=== PATIENT | female | born 1975 | race American Indian/Alaskan Native ===

== ENCOUNTER 2019-10-07 19:43 | Emergency (ER) | payer MEDICAID ==
[2019-10-07 19:53] VITALS: BP 127/83
[2019-10-07] MEDS ORDERED: LIDOCAINE-MPF (1%) 10 MG/1 ML VIAL 5 ML INFILTRATI ONE (20:06)
[2019-10-07] MEDS ORDERED: IBUPROFEN 600 MG TAB PO ONE (20:06)
[2019-10-07] MEDS ORDERED: cephALEXin 500 MG CAP PO ONE (20:06)
[2019-10-07] MEDS ORDERED: ACETAMINOPHEN 500 MG TAB PO ONE (20:07)
--- NOTE | 2019-10-07 21:23 | Emergency Department Report ---
ED Extremity Problem HPI - General Chief complaint: Extremity Injury, Upper Stated complaint: RIGHT THUMB PAIN Source: patient Mode of arrival: Ambulatory Limitations: No Limitations - History of Present Illness Initial comments: Patient is a 43-year-old -[place] female with no past medical history who presents to the ED with complaint of acute onset persistent severe painful swelling erythematous maculopapular rash on distal dorsal right thumb for 2 days after aggressively cutting her nails about 4 days ago. Patient states that the pain has worsened especially in the last 24 hours such that she was unable to sleep because of severe pain. Patient denies fever, chills, nausea, vomiting, traumatic injury, numbness and tingling or weakness of right hand or right hand. MD Complaint: extremity pain (right pain and swelling), joint swelling (right thumb), other (erythematous painful swollen fluctuant rash on distal right thumb) -: Sudden, days(s) (2) Location: right, upper extremity (thumb) History of Same: No -: Yes myalgia, No arthralgia, No fever, No associated dyspnea, No associated chest pain Radiation: none Severity scale (0 -10): 9 Quality: aching, sharp Consistency: constant Improves with: nothing Worsens with: nothing Associated Symptoms: denies other symptoms, rash (Erythematous maculopapular painful swollen rash on distal right arm). denies: chest pain, shortness of breath, fever, myalgias, arthralgias - Related Data Previous Rx's Medication Instructions Recorded Last Taken Type Acetaminophen/Codeine [Tylenol 1 tab PO Q6H PRN #12 tab 10/07/19 Unknown Rx /Codeine # 3 tab] Ibuprofen [Motrin] 600 mg PO Q8H PRN #24 tablet 10/07/19 Unknown Rx cephALEXin [Keflex] 500 mg PO Q6HR #40 capsule 10/07/19 Unknown Rx Allergies Allergy/AdvReac Type Severity Reaction Status Date / Time No Known Allergies Allergy Unverified 10/07/19 19:53 ED Review of Systems ROS: Stated complaint: RIGHT THUMB PAIN Other details as noted in HPI Constitutional: denies: chills, fever Eyes: denies: eye pain, eye discharge, vision change ENT: denies: ear pain, throat pain Respiratory: denies: cough, shortness of breath, wheezing Cardiovascular: denies: chest pain, palpitations Endocrine: no symptoms reported Gastrointestinal: denies: abdominal pain, nausea, diarrhea Genitourinary: denies: urgency, dysuria, discharge Musculoskeletal: joint swelling (Painful swollen erythematous rash on distal right thumb), arthralgia (Painful swelling erythematous rash on distal right thumb). denies: back pain Skin: rash (Erythematous maculopapular rash with pain and swelling on distal right thumb). denies: lesions Neurological: denies: headache, weakness, paresthesias Psychiatric: denies: anxiety, depression Hematological/Lymphatic: denies: easy bleeding, easy bruising ED Past Medical Hx - Past Medical History Previous Medical History?: No - Surgical History Past Surgical History?: No - Social History Smoking Status: Never Smoker Substance Use Type: None - Medications Home Medications: Home Medications Medication Instructions Recorded Confirmed Last Taken Type Acetaminophen/Codeine [Tylenol 1 tab PO Q6H PRN #12 tab 10/07/19 Unknown Rx /Codeine # 3 tab] Ibuprofen [Motrin] 600 mg PO Q8H PRN #24 tablet 10/07/19 Unknown Rx cephALEXin [Keflex] 500 mg PO Q6HR #40 capsule 10/07/19 Unknown Rx ED Physical Exam - General Limitations: No Limitations General appearance: alert, in no apparent distress - Head Head exam: Present: atraumatic, normocephalic, normal inspection - Eye Eye exam: Present: normal appearance, PERRL, EOMI Pupils: Present: normal accommodation - ENT ENT exam: Present: normal exam, normal orophraynx, mucous membranes moist, TM's normal bilaterally, normal external ear exam - Neck Neck exam: Present: normal inspection, full ROM. Absent: tenderness, lymphadenopathy - Respiratory Respiratory exam: Present: normal lung sounds bilaterally. Absent: respiratory distress, wheezes, rales, rhonchi, chest wall tenderness, accessory muscle use, decreased breath sounds, prolonged expiratory - Cardiovascular Cardiovascular Exam: Present: regular rate, normal rhythm, normal heart sounds. Absent: systolic murmur, diastolic murmur, rubs, gallop - GI/Abdominal GI/Abdominal exam: Present: soft, normal bowel sounds. Absent: tenderness, guarding, rebound, hyperactive bowel sounds, hypoactive bowel sounds - Extremities Exam Extremities exam: Present: normal inspection, full ROM, tenderness (Palpable severe tenderness on distal right thumb with swelling due to erythematous maculopapular fluctuant rash), normal capillary refill, joint swelling (Swollen, severely tender distal right thumb due to erythematous fluctuant maculopapular rash) - Back Exam Back exam: Present: normal inspection, full ROM. Absent: tenderness, CVA tenderness (R), muscle spasm, paraspinal tenderness - Neurological Exam Neurological exam: Present: alert, oriented X3, CN II-XII intact, normal gait, reflexes normal - Psychiatric Psychiatric exam: Present: normal affect, normal mood - Skin Skin exam: Present: warm, dry, intact, rash (Erythematous maculopapular fluctuant rash with tenderness on distal right thumb), erythema ED Course Vital Signs 10/07/19 19:47 Temperature 99.5 F Pulse Rate 73 Respiratory 18 Rate Blood Pressure 127/83 O2 Sat by Pulse 100 Oximetry - I & D Right Distal Finger Type of Procedure: Simple Site: Distal dorsal right thumb Blade Size: 11 I & D Procedure: betadine prep, sterile dressing applied, gauze wick placed Progress: Patient tolerated the procedure well. Patient was discharged home on antibiotics and pain medications and advised to follow-up with her primary care physician in 7 to 10 days for reevaluation or return to the ED immediately if symptoms get worse. ED Medical Decision Making - Medical Decision Making This is a 43-year-old -[place] female with no past medical history who presents to the ED with complaint of acute onset persistent severe painful swelling erythematous maculopapular rash on distal dorsal right thumb for 2 days after aggressively cutting her nails about 4 days ago. Patient states that the pain has worsened especially in the last 24 hours such that she was unable to sleep because of severe pain. In the ED, patient is alert and oriented x3 and is not in distress but appears to be in significant pain and vital signs are stable. Patient was treated for pain and also given initial oral antibiotics Keflex in the ED. The right thumb swollen rash was cleaned thoroughly and incised and drained per protocol. Patient tolerated the procedure well and the wound was cleaned, packed with sterile gauze and dressed appropriately. Patient was discharged home on oral antibiotics and pain medication and advised to follow-up with her primary care physician in 5 to 7 days for reevaluation or return to the ED immediately if symptoms get worse. - Differential Diagnosis cellulitis; paronychia; cutaneous abscess; Folliculitis Critical care attestation.: If time is entered above; I have spent that time in minutes in the direct care of this critically ill patient, excluding procedure time. ED Disposition Clinical Impression: Cellulitis of right thumb, Acute paronychia of right thumb Disposition: TO HOME OR SELFCARE Is pt being admited?: No Does the pt Need Aspirin: No Condition: Stable Instructions: Paronychia (ED), Cellulitis (ED) Additional Instructions: Take medication with food, drink plenty fluids and follow-up with your primary care physician in 5 to 7 days for reevaluation. Return to the ED immediately if symptoms get worse. Prescriptions: cephALEXin [Keflex] 500 mg PO Q6HR #40 capsule Ibuprofen [Motrin] 600 mg PO Q8H PRN #24 tablet PRN Reason: Pain Acetaminophen/Codeine [Tylenol /Codeine # 3 tab] 1 tab PO Q6H PRN #12 tab PRN Reason: Pain , Severe (7-10) Referrals: [facility] [Provider Group] - 7-10 days Time of Disposition: 21:23 Print Language: UPPER SORBIAN
== END 2019-10-07 21:53 | disposition home or self-care (01) ==
LOC: ED 19:43
DX: L03.011 Cellulitis of right finger (principal); Z79.899 Other long term (current) drug therapy
CPT/HCPCS: 99282

== ENCOUNTER 2020-12-20 23:26 | Emergency (ER) | payer MEDICAID ==
--- NOTE | 2020-12-21 01:35 | Event Note ---
ED Screening Note Date of service: 12/21/20 Time: 01:34 ED Screening Note: Patient is a 45-year-old -Welsh female with no past medical history presents to the ED with complaint of acute onset persistent diffuse abdominal pain with nausea and diarrhea for the last 4 months, worse in the last 3 days. Patient states that she has been taking [id number] antidiarrheal medications with no relief. Patient states that about 6 hours ago she noticed that there was some blood mixed with diarrhea and decided come to the ED for evaluation. Patient denies vomiting, fever, chills, dizziness, syncope, dysuria, urinary frequency and urgency, vaginal bleeding, fever, chills, cough, chest pa in or shortness of breath. This initial assessment/diagnostic orders/clinical plan/treatment(s) is/are subject to change based on patients health status, clinical progression and re- assessment by fellow clinical providers in the ED. Further treatment and workup at subsequent clinical providers discretion. Patient/guardian urged not to elope from the ED as their condition may be serious if not clinically assessed and managed. Initial orders include: CBC, CMP, lipase, UA, serum hCG
[2020-12-21 02:05] LABS: Bacteria,Urine 1+ /HPF (Negative); Bilirubin,Urine NEG (Negative); Blood,Urine SM (Negative); Calcium Oxalate Crystals,Urine 3+; Color,Urine Yellow (Yellow); Mucus,Urine 3+ /HPF
[2020-12-21 02:26] LABS: Basophils % (Auto) 0.3 % (0.0-1.8); Eosinophils # (Auto) 0.2 K/mm3 (0.0-0.4); Eosinophils % (Auto) 1.7 % (0.0-4.3); Hematocrit 37.8 % (30.3-42.9); Hemoglobin 12.6 gm/dl (10.1-14.3); Lymphocytes # (Auto) 2.5 K/mm3 (1.2-5.4); Lymphocytes % (Auto) 22.9 % (13.4-35.0); Mean Corpuscular HGB Conc 33 % (30-34); Mean Corpuscular Volume 94 fl (79-97); Monocytes % (Auto) 9.2 % (0.0-7.3); Platelet Count 203 K/mm3 (140-440); Red Blood Count 4.03 M/mm3 (3.65-5.03); Red Cell Distribution Width 13.8 % (13.2-15.2)
[2020-12-21 02:34] LABS: BUN/Creatinine Ratio 14; Blood Urea Nitrogen 11 mg/dL (7-17)
[2020-12-21 02:38] LABS: Alanine Aminotransferase 17 units/L (7-56); Calcium 8.9 mg/dL (8.4-10.2); Hemolysis Index 0
[2020-12-21] MEDS ORDERED: ONDANSETRON 4 MG ODT TAB PO ONE (05:27)
[2020-12-21] MEDS ORDERED: FAMOTIDINE 20 MG TAB PO ONE (05:27)
[2020-12-21] MEDS ORDERED: DICYCLOMINE 20 MG TAB PO ONE (05:27)
--- NOTE | 2020-12-21 05:31 | Cat Scan Report ---
CT ABDOMEN AND PELVIS WITH IV CONTRAST INDICATION: ABDOMINAL PAIN, N/V/D. COMPARISON: None available. TECHNIQUE: Axial CT images were obtained through the abdomen and pelvis after 100 mL IV contrast. All CT scans a t this location are performed using CT dose reduction for ALARA by means of automated exposure contro l. FINDINGS -- ABDOMEN: Lung Bases: No acute abnormality. Liver: Normal. Gallbladder: Normal. Bile Ducts: Normal. Pancreas: Normal. Spleen: Normal. Adrenals: Normal. Right Kidney and Proximal Ureter: Nonobstructive right-sided nephrolithiasis suspected.. Left Kidney and Proximal Ureter: Normal. Stomach and Bowel: Normal. Lymph Nodes: No significant adenopathy. Aorta: No significant abnormality. IVC: Normal. Additional Findings: None. FINDINGS -- PELVIS: Urinary Bladder and Distal Ureters: Normal. Reproductive Organs: No acute abnormality. Appendix: Not well identified. Bowel: Mild thickening involving the cecal mucosa. Free Fluid: None. Lymph Nodes: No significant adenopathy. Additional Findings: None. Skeletal System: No acute abnormality. IMPRESSION: Mild adenopathy of the right lower quadrant mesentery which could be seen with mesenteritis. There is also slight thickening involving the mucosa involving the cecum which could be secondary to colitis. Signer Name: Hector Ballard MD Signed: 12/21/2020 5:26 AM Workstation Name: [id number]
--- NOTE | 2020-12-21 05:47 | Emergency Department Report ---
ED Abdominal Pain HPI - General Chief Complaint: Nausea/Vomiting/Diarrhea Stated Complaint: BLOOD IN STOOL Source: patient Mode of arrival: Ambulatory Limitations: No Limitations - History of Present Illness Initial Comments: Patient is a 45-year-old -Finn[place] female with a history of chronic osteoarthritis who presents to the ED with complaint of acute onset persistent diffuse abdominal pain that radiates to the right lower quadrant and suprapubic area, nausea and vomiting and diarrhea for the last 4 months intermittently. Patient states that she has been taking Pepto-Bismol and ibuprofen with no relief. Patient states that she was evaluated initially by her primary care physician who advised her that her symptoms are likely due to a virus gastroenteritis. Patient states that in the last 1 month, she has been experiencing intermittent hematochezia with persistent diarrhea and decided come to the ED for further evaluation. Patient states that in the last 1 week, diarrhea has been persistent, constant and with worsening abdominal pain. Patient denies dizziness, syncope, chest pain or shortness of breath, dysuria, urinary frequency and urgency, vaginal bleeding, vaginal discharge, low back pain, cough, fever and chills. MD Complaint: abdominal pain (diffuse), other (nausea, vomiting and diarrhea) -: Sudden, month(s) (4) Location: RLQ Radiation: RLQ, suprapubic Migration to: no migration Severity: moderate Severity scale (0 -10): 6 Quality: cramping, sharp Consistency: constant Improves With: nothing Worsens With: vomiting Associated Symptoms: denies other symptoms, nausea, vomiting, diarrhea, anorexia. denies: chills, constipation, dysuria, hematemesis, hematochezia, melena, hematuria, syncope, other Treatments Prior to Arrival: NSAIDs - Related Data LMP Date: 11/25/20 Previous Rx's Medication Instructions Recorded Last Taken Type Acetaminophen/Codeine [Tylenol 1 tab PO Q6H PRN #12 tab 10/07/19 Unknown Rx /Codeine # 3 tab] Ibuprofen [Motrin] 600 mg PO Q8H PRN #24 tablet 10/07/19 Unknown Rx cephALEXin [Keflex] 500 mg PO Q6HR #40 capsule 10/07/19 Unknown Rx Ciprofloxacin HCl 500 mg PO Q12H #20 tablet 12/21/20 Unknown Rx Dicyclomine [Bentyl] 20 mg PO Q6H PRN #30 tablet 12/21/20 Unknown Rx Diphenoxylate/Atropine [Lomotil] 1 - 2 tab PO Q4H PRN #15 tablet 12/21/20 Unknown Rx Ondansetron [Zofran Odt] 4 mg PO Q8HR PRN #20 tab.rapdis 12/21/20 Unknown Rx metroNIDAZOLE [Flagyl] 500 mg PO Q8HR #30 tablet 12/21/20 Unknown Rx Allergies Allergy/AdvReac Type Severity Reaction Status Date / Time No Known Allergies Allergy Unverified 10/07/19 19:53 ED Review of Systems ROS: Stated complaint: BLOOD IN STOOL Other details as noted in HPI Constitutional: denies: chills, fever Eyes: denies: eye pain, eye discharge, vision change ENT: denies: ear pain, throat pain Respiratory: denies: cough, shortness of breath, wheezing Cardiovascular: denies: chest pain, palpitations Endocrine: no symptoms reported Gastrointestinal: abdominal pain (RLQ and suprapubic ). denies: nausea, vomiting, diarrhea, constipation, hematemesis, melena, hematochezia Genitourinary: denies: urgency, dysuria, discharge Musculoskeletal: denies: back pain, joint swelling, arthralgia Skin: denies: rash, lesions Neurological: denies: headache, weakness, paresthesias Psychiatric: denies: anxiety, depression Hematological/Lymphatic: denies: easy bleeding, easy bruising ED Past Medical Hx - Past Medical History Previous Medical History?: Yes Hx Arthritis: Yes - Surgical History Past Surgical History?: No - Social History Smoking Status: Never Smoker Substance Use Type: None - Medications Home Medications: Home Medications Medication Instructions Recorded Confirmed Last Taken Type Acetaminophen/Codeine [Tylenol 1 tab PO Q6H PRN #12 tab 10/07/19 Unknown Rx /Codeine # 3 tab] Ibuprofen [Motrin] 600 mg PO Q8H PRN #24 tablet 10/07/19 Unknown Rx cephALEXin [Keflex] 500 mg PO Q6HR #40 capsule 10/07/19 Unknown Rx Ciprofloxacin HCl 500 mg PO Q12H #20 tablet 12/21/20 Unknown Rx Dicyclomine [Bentyl] 20 mg PO Q6H PRN #30 tablet 12/21/20 Unknown Rx Diphenoxylate/Atropine [Lomotil] 1 - 2 tab PO Q4H PRN #15 tablet 12/21/20 Unknown Rx Ondansetron [Zofran Odt] 4 mg PO Q8HR PRN #20 tab.rapdis 12/21/20 Unknown Rx metroNIDAZOLE [Flagyl] 500 mg PO Q8HR #30 tablet 12/21/20 Unknown Rx ED Physical Exam - General Limitations: No Limitations General appearance: alert, in no apparent distress - Head Head exam: Present: atraumatic, normocephalic, normal inspection - Eye Eye exam: Present: normal appearance, PERRL, EOMI Pupils: Present: normal accommodation - ENT ENT exam: Present: normal exam, normal orophraynx, mucous membranes moist, TM's normal bilaterally, normal external ear exam - Neck Neck exam: Present: normal inspection, full ROM - Respiratory Respiratory exam: Present: normal lung sounds bilaterally. Absent: respiratory distress, wheezes, rales, rhonchi, chest wall tenderness, accessory muscle use, decreased breath sounds, prolonged expiratory - Cardiovascular Cardiovascular Exam: Present: regular rate, normal rhythm, normal heart sounds. Absent: systolic murmur, diastolic murmur, rubs, gallop - GI/Abdominal GI/Abdominal exam: Present: soft, tenderness (Palpable moderate right lower quadrant and suprapubic tenderness), normal bowel sounds. Absent: guarding, rebound, hyperactive bowel sounds, hypoactive bowel sounds, organomegaly - Extremities Exam Extremities exam: Present: normal inspection, full ROM, normal capillary refill - Back Exam Back exam: Present: normal inspection, full ROM. Absent: tenderness, CVA tenderness (R), CVA tenderness (L), muscle spasm, paraspinal tenderness, vertebral tenderness - Neurological Exam Neurological exam: Present: alert, oriented X3, CN II-XII intact, normal gait, reflexes normal - Psychiatric Psychiatric exam: Present: normal affect, normal mood - Skin Skin exam: Present: warm, dry, intact, normal color. Absent: rash ED Course Vital Signs 12/21/20 01:32 Temperature 99.1 F Pulse Rate 69 Respiratory 18 Rate Blood Pressure 113/78 O2 Sat by Pulse 100 Oximetry ED Medical Decision Making - Lab Data Result diagrams: 12/21/20 01:46 12/21/20 01:46 - Radiology Data Radiology results: report reviewed, image reviewed [facility] [address] [place] [address] Cat Scan Report Signed Patient: SAMUEL KNOTT MR#: [id number] : 1975 Acct:[id number] Age/Sex: 45 / F ADM Date: 12/20/20 Loc: ED Attending Dr: Ordering Physician: FADI SHAFER Date of Service: 12/21/20 Procedure(s): CT abdomen pelvis w con Accession Number(s): [id number] cc: FADI SHAFER CT ABDOMEN AND PELVIS WITH IV CONTRAST INDICATION: ABDOMINAL PAIN, N/V/D. COMPARISON: None available. TECHNIQUE: Axial CT images were obtained through the abdomen and pelvis after 100 mL IV contrast. All CT scans at this location are performed using CT dose reduction for ALARA by means of automated exposure control. FINDINGS -- ABDOMEN: Lung Bases: No acute abnormality. Liver: Normal. Gallbladder: Normal. Bile Ducts: Normal. Pancreas: Normal. Spleen: Normal. Adrenals: Normal. Right Kidney and Proximal Ureter: Nonobstructive right-sided nephrolithiasis suspected.. Left Kidney and Proximal Ureter: Normal. Stomach and Bowel: Normal. Lymph Nodes: No significant adenopathy. Aorta: No significant abnormality. IVC: Normal. Additional Findings: None. FINDINGS -- PELVIS: Urinary Bladder and Distal Ureters: Normal. Reproductive Organs: No acute abnormality. Appendix: Not well identified. Bowel: Mild thickening involving the cecal mucosa. Free Fluid: None. Lymph Nodes: No significant adenopathy. Additional Findings: None. Skeletal System: No acute abnormality. IMPRESSION: Mild adenopathy of the right lower quadrant mesentery which could be seen with mesenteritis. There is also slight thickening involving the mucosa involving the cecum which could be secondary to colitis. Signer Name: Hector Ballard MD Signed: 12/21/2020 5:26 AM Workstation Name: [id number] Transcribed By: Dictated By: Hector Ballard MD Electronically Authenticated By: Hector Ballard MD Signed Date/Time: 12/21/20525 DD/ 1 TD/TT: - Medical Decision Making This is a 45-year-old -Finnish female with a history of chronic osteoarthritis who presents to the ED with complaint of acute onset persistent diffuse abdominal pain that radiates to the right lower quadrant and suprapubic area, nausea and vomiting and diarrhea for the last 4 months intermittently. Patient states that she has been taking Pepto-Bismol and ibuprofen with no relief. Patient states that she was evaluated initially by her primary care physician who advised her that her symptoms are likely due to a virus gastroenteritis. Patient states that in the last 1 month, she has been experiencing intermittent hematochezia with persistent diarrhea and decided come to the ED for further evaluation. Patient states that in the last 1 week, diarrhea has been persistent, constant and with worsening abdominal pain. In the ED, patient is alert and oriented x3 and is not in any distress. Lab test results were reviewed and are all nonactionable. Patient was treated in the ED for pain, also given antiemetics and antacids. The abdomen pelvis CT scan with contrast showed mild adenopathy of the right lower quadrant mesentery which could be seen with mesenteritis. There is also slight thickening involving the mucosa involving the cecum which could be secondary to colitis. Patient was therefore treated him in the ED initially with oral Flagyl 500 mg and Levaquin 500 mg p.o. x1. Patient was discharged home on pain medications, antibiotics Flagyl and ciprofloxacin as well as antiemetics and antidiarrheal medication. Patient was therefore advised to follow-up with her primary care physician and also given a referral to the GI physician Dr. Clifford Munguia for further evaluation. Patient is advised to contact Dr. Clifford Munguia's office first thing in the morning on Tuesday, December 21, 2020 to schedule a follow-up appointment. Patient is advised return to the ED immediately if symptoms get worse. - Differential Diagnosis Gastroenteritis; UTI; colitis; appendicitis; diverticulitis; kidney stones Critical care attestation.: If time is entered above; I have spent that time in minutes in the direct care of this critically ill patient, excluding procedure time. ED Disposition Clinical Impression: Nausea, vomiting and diarrhea, Acute colitis Abdominal pain Qualifiers: Abdominal location: lower abdomen, unspecified Qualified Code(s): R10.30 - Lower abdominal pain, unspecified Disposition: - TO HOME OR SELFCARE Is pt being admited?: No Does the pt Need Aspirin: No Condition: Stable Instructions: Abdominal Pain, Adult, [id number], Nausea and Vomiting, Adult, [id number], Diarrhea, Adult, [id number], Colitis Additional Instructions: All lab test results were reviewed and are all nonactionable. The abdomen pe lvis CT scan without contrast showed mild adenopathy of the right lower quadrant mesentery which could be seen with mesenteritis. There is also slight thickening involving the mucosa involving the cecum which could be secondary to colitis. Therefore take medication with food, drink plenty of fluids and follow-up with your primary care physician in 7 to 10 days for reevaluation. Consider following up with a GI physician client technical professional Dr. Clifford Munguia in the next 5 to 7 days for reevaluation. Contact Dr. Munguia's office first thing in the morning on Tuesday, December 21, 2020 to schedule a follow-up appointment. Return to the ED immediately if symptoms get worse. Prescriptions: Dicyclomine [Bentyl] 20 mg PO Q6H PRN #30 tablet PRN Reason: abdominal pain Ciprofloxacin HCl 500 mg PO Q12H #20 tablet metroNIDAZOLE [Flagyl] 500 mg PO Q8HR #30 tablet Diphenoxylate/Atropine [Lomotil] 1 - 2 tab PO Q4H PRN #15 tablet PRN Reason: Diarrhea Ondansetron [Zofran Odt] 4 mg PO Q8HR PRN #20 tab.rapdis PRN Reason: Nausea Referrals: CLIFFORD MUNGUIA MD [Staff Physician] - 3-5 Days [facility] [Provider Group] - 3-5 Days Forms: Work/School Release Form(ED) Time of Disposition: 05:48 Print Language: YI
[2020-12-21] MEDS ORDERED: levoFLOXacin 500 MG TAB PO ONE (05:48)
[2020-12-21] MEDS ORDERED: metroNIDAZOLE 500 MG TAB PO ONE (05:48)
[2020-12-21 06:25] VITALS: BP 142/78
== END 2020-12-21 06:52 | disposition home or self-care (01) ==
LOC: ED 23:26
DX: K52.9 Noninfective gastroenteritis and colitis, unspecified (principal); R10.31 Right lower quadrant pain; R11.2 Nausea with vomiting, unspecified; M19.91 Primary osteoarthritis, unspecified site; Z79.1 Long term (current) use of non-steroidal anti-inflammatories (NSAID); Z79.2 Long term (current) use of antibiotics; Z79.899 Other long term (current) drug therapy
CPT/HCPCS: 36415; 74177; 80053; 81001; 83690; 84703; 85025; 99284; Q9967; Q0162